=== PATIENT | male | born 1950 | race Caucasian/White ===

== ENCOUNTER 2021-04-27 08:19 | Outpatient (REF) | payer BC, SELFPAY ==
--- NOTE | ~2021-04-27 | US_ITS ---
EXAMINATION: US RETROPERITONEAL LIMITED (RENAL ONLY) CLINICAL INFORMATION: Calculus of kidney. COMPARISON: Renal ultrasound 09/24/2019 and 10/09/2018. X-ray abdomen KUB 08/13/2013 and 05/27/2008. CT abdomen and pelvis 10/01/2006. TECHNIQUE: Real-time imaging of the kidneys. FINDINGS: RIGHT KIDNEY: 13.4 x 6.2 x 6.0 cm (SAG x AP x TRV). The kidney is normal in size, contour, and echogenicity. Renal cortical thickness is normal. There is a 2.3 x 1.6 x 1.8 cm cyst in the upper pole. There is a 1.3 x 1.4 x 1.5 cm cyst in the upper pole with some internal echoes questionable for a complex cyst. No renal calculi or hydronephrosis. LEFT KIDNEY: 12.4 x 6.4 x 6.0 cm (SAG x AP x TRV). The kidney is normal in size, contour, and echogenicity. Renal cortical thickness is normal. There are 3 simple cysts, largest measuring 2 x 1.6 x 1.7 cm in the lower pole. No renal calculi or hydronephrosis. US/US renal BI IMPRESSION: Bilateral renal cysts. No stone seen.
[2021-04-27 10:22] LABS: PSA,Total (Free>4and<10) 3.33 ng/mL (0.00-4.00)
== END 2021-04-27 08:20 | disposition home or self-care (01) ==
LOC: HO.US 08:19
PROVIDERS: PCP Internal Medicine; Visit Provider Urology
DX: Z12.5 Encounter for screening for malignant neoplasm of prostate (principal); N20.0 Calculus of kidney; N40.1 Benign prostatic hyperplasia with lower urinary tract symptoms; N13.8 Other obstructive and reflux uropathy
CPT/HCPCS: 36415; 76775; 84153

== ENCOUNTER → 2021-05-18 13:53 | Outpatient (BNVA) | payer BC, SELFPAY | PROVIDERS: Visit Provider Urology ==

== ENCOUNTER 2021-10-28 10:14 | Outpatient (REF) | payer BC, SELFPAY ==
[2021-10-28 12:16] LABS: PSA,Total (Free>4and<10) 1.97 ng/mL (0.00-4.00)
== END 2021-10-28 10:15 | disposition home or self-care (01) ==
LOC: HO.HMGCLDS 10:14
PROVIDERS: Visit Provider Urology
DX: Z12.5 Encounter for screening for malignant neoplasm of prostate (principal); N40.1 Benign prostatic hyperplasia with lower urinary tract symptoms; N13.8 Other obstructive and reflux uropathy; R97.20 Elevated prostate specific antigen [PSA]
CPT/HCPCS: 36415; 84153

== ENCOUNTER → 2021-11-22 13:47 | Outpatient (BNVA) | payer BC, SELFPAY | PROVIDERS: Visit Provider Urology | DX: Z13.89 Encounter for screening for other disorder (principal) ==

== ENCOUNTER 2022-03-30 15:26 | Outpatient (REF) | payer BC, SELFPAY ==
--- NOTE | ~2022-03-30 | US_ITS ---
EXAMINATION: US RETROPERITONEAL LIMITED (RENAL ONLY) CLINICAL INFORMATION: Calculus of kidney. COMPARISON: US retroperitoneal limited (renal only) 04/27/2021 and 09/24/2019. XR abdomen KUB 08/13/2013. TECHNIQUE: Real-time imaging of the kidneys. FINDINGS: RIGHT KIDNEY: 13.2 x 5.9 x 7.5 cm (SAG x AP x TRV). The kidney is normal in size, contour, and echogenicity. Renal cortical thickness is normal. No renal calculi or hydronephrosis. There are 3 anechoic cysts. A midpole cyst measuring 1.8 x 2.1 x 1.9 cm and lower pole cyst measuring 2.6 x 3.6 x 2.3 cm and 1.2 x 1.2 x 0.81 cm. LEFT KIDNEY: 12.6 x 6.2 x 7.0 cm (SAG x AP x TRV). The kidney is normal in size, contour, and echogenicity. Renal cortical thickness is normal. No renal calculi or hydronephrosis. There are 3 anechoic cysts. Lower pole cyst measuring 1.1 x 1.2 x 1.1 cm and 2.6 x 2.3 x 1.7 cm. Midpole cyst measures 1.0 x 0.85 x 0.91 cm. US/US renal BI IMPRESSION: Bilateral renal cysts. No echogenic stones seen. Cyst were seen on previous study 04/27/2021
== END 2022-03-30 15:27 | disposition home or self-care (01) ==
LOC: HO.HMGCX 15:26
PROVIDERS: Visit Provider Urology
DX: N20.0 Calculus of kidney (principal)
CPT/HCPCS: 76775

== ENCOUNTER 2022-05-03 10:41 | Outpatient (REF) | payer BC, SELFPAY ==
[2022-05-03 14:48] LABS: Prostate Specific Antigen 1.51 ng/mL (<0.05-4.0)
== END 2022-05-03 10:42 | disposition home or self-care (01) ==
LOC: HO.HMGCLDS 10:41
PROVIDERS: Visit Provider Urology
DX: R97.20 Elevated prostate specific antigen [PSA] (principal); Z12.5 Encounter for screening for malignant neoplasm of prostate
CPT/HCPCS: 36415; 84153

== ENCOUNTER → 2022-05-25 08:32 | Outpatient (BNVA) | payer BC, SELFPAY | PROVIDERS: PCP Internal Medicine; Visit Provider Urology | DX: N40.1 Benign prostatic hyperplasia with lower urinary tract symptoms (principal); N13.8 Other obstructive and reflux uropathy; N20.0 Calculus of kidney | CPT/HCPCS: 51798 ==

== ENCOUNTER 2023-05-07 11:00 | Outpatient (REF) | payer BC, SELFPAY ==
[2023-05-07 13:55] LABS: Prostate Specific Antigen 1.76 ng/mL (<0.05-4.0)
== END 2023-05-07 11:01 | disposition home or self-care (01) ==
LOC: HO.HMGCLDS 11:00
PROVIDERS: PCP Internal Medicine; Visit Provider Urology
DX: N13.8 Other obstructive and reflux uropathy (principal); N40.1 Benign prostatic hyperplasia with lower urinary tract symptoms; Z12.5 Encounter for screening for malignant neoplasm of prostate
CPT/HCPCS: 36415; 84153

== ENCOUNTER 2023-05-11 08:04 | Outpatient (REF) | payer BC, SELFPAY ==
--- NOTE | ~2023-05-11 | US_ITS ---
EXAMINATION: US RETROPERITONEAL LIMITED (RENAL ONLY) CLINICAL INFORMATION: Calculus of kidney. COMPARISON: Renal ultrasound 03/30/2022 and 04/27/2021. TECHNIQUE: Real-time imaging of the kidneys. Limited visualization due to bowel gas. FINDINGS: RIGHT KIDNEY: 12.9 x 5.9 x 6.3 cm (SAG x AP x TRV). No hydronephrosis. No renal calculi. Limited visualization. Multiple renal cysts, largest upper pole 2.9 x 2.2 x 2.0 cm with benign features. There is no indication for follow up imaging. LEFT KIDNEY: 13.2 x 6.1 x 7.0 cm (SAG x AP x TRV). No hydronephrosis. No renal calculi. Limited visualization. Multiple renal cysts, largest lower pole 2.6 x 2.7 x 2.5 cm with benign features. There is no indication for follow up imaging. US/US renal BI IMPRESSION: No hydronephrosis. No renal calculi.
== END 2023-05-11 08:05 | disposition home or self-care (01) ==
LOC: HO.US 08:04
PROVIDERS: PCP Internal Medicine; Visit Provider Urology
DX: N20.0 Calculus of kidney (principal)
CPT/HCPCS: 76775

== ENCOUNTER 2023-05-24 08:35 | Outpatient (AMB) | payer BC, SELFPAY ==
--- NOTE | 2023-05-24 08:50 | A.OFFVIS_ITS ---
Intake Intake Visit Reasons: 1Y US/PSA(set) Intake Note: Patient is present for ultrasound/PSA/PVR Follow Up Current Medication: Tamsulosin Blood Thinners: none Post Void Residual: Training Program Developer Required: No Accompanied by: Self / Same As Patient Allergies tolmetin [From Tolectin] Allergy (Mild, Verified 05/24/23 08:53) ANAPHYLAXIS tolectin Allergy (Unknown, Uncoded 05/24/23 08:53) rash HPI HPI Comments History of Present Illness Details Chato is a pleasant male. He is a patient of Dr. Willoughby. He is seen for the following urologic conditions. - nephrolithiasis with renal cyst - PSA PSA remains low No stones Stable for past years May follow with Dr. Willoughby PSallyrSallyn. follow-up Nephrolithiasis Prior history Imaging showing renal cysts Imaging - 05/17 renal ultrasound bilateral renal cyst multiple in left and right up to 2 cm, no stones - 05/18 renal ultrasound bilateral renal cysts multiple unchanged, no stones - 05/19 renal ultrasound multiple renal c ysts with no stones PSA PSA 11/15 1.97, 05/18 1.5, 05/19 1.8 Repeat PSA in 6 months Family history prostate cancer father in later life PFSH Medical History Renal stones Hyperlipidemia BPH (benign prostatic hyperplasia) Surgical History History of surgery No history of previous surgery Family History Father Prostate cancer Social History Patient Tobacco Use Status: Never used Tobacco Review of Systems Const Denies chills and Denies fever(s) Card Reports no additional complaints and Denies syncope Resp Denies cough GI Denies abdominal pain and Denies heartburn Reports as per HPI and Denies change in libido Neuro Denies syncope Psych Denies change in libido Endo Denies change in libido Physical Exam Const General: cooperative, healthy appearing, comfortable and no acute distress Orientation/consciousness: patient oriented x3 HEENT Face and sinus: Yes normal facial exam Mouth: moist mucous membranes Neck Neck: Yes normal visual inspection, Yes full ROM and Yes trachea midline Chest Chest palpation & inspection: normal inspection of the chest Resp Effort & Inspection: normal respiratory effort, able to speak in complete sentences and no respiratory distress GI Inspection: Yes normal to inspection Back/Spine/Pelvis Cervical Spine: normal cervical lordosis Thoracic/Lumbar Spine: thoracic and lumbar spine normal to inspection Skin General skin exam: no rashes or lesions noted Neuro General: patient oriented x3, gait normal, tone normal and moves all extremities Extrem General: Yes normal to inspection and Yes capillary refill normal Results AMB Urinalysis, Automated UA Leukoctes 0 Cheri/uL Last Edit by [employer] on 05/24/23 09:01 UA Nitrite Last Edit by [employer] on 05/24/23 09:01 UA Urobilinogen 0.2 mg/dL Last Edit by [employer] on 05/24/23 09:01 UA Protein 0 mg/dL Last Edit by [employer] on 05/24/23 09:01 UA pH 6.0 Last Edit by [employer] on 05/24/23 09:01 UA Blood 0 Flex/uL Last Edit by [employer] on 05/24/23 09:01 UA Specific [place] 1.020 Last Edit by [employer] on 05/24/23 09:01 UA Ketone Negative Last Edit by [employer] on 05/24/23 09:01 UA Bilirubin 0 mg/dL Last Edit by [employer] on 05/24/23 09:01 UA Glucose 0 mg/dL Last Edit by [employer] on 05/24/23 09:01 Results Reviewed Results Reviewed: Laboratory Last Values Urine pH (Auto) 6.0 05/24/23 08:55 Specific [place] (Auto) 1.020 05/24/23 08:55 Urine Protein (Auto) 0 mg/dL 05/24/23 08:55 Glucose (UA)(Auto) 0 mg/dL 05/24/23 08:55 Urine Ketones (Auto) Negative 05/24/23 08:55 Urine Blood (Auto) 0 Flex/uL 05/24/23 08:55 Urine Bilirubin (Auto) 0 mg/dL 05/24/23 08:55 Urine Urobilinogen (Auto) 0.2 mg/dL 05/24/23 08:55 Leukocyte Esterase (Auto) 0 Cheri/uL 05/24/23 08:55 Assessment & Plan Assessment & Plan (1) BPH w urinary obs/LUTS: Code(s): N40.1 - Benign prostatic hyperplasia with lower urinary tract symptoms; N13.8 - Other obstructive and reflux uropathy (2) Nephrolithiasis: Code(s): N20.0 - Calculus of kidney Plan P.r.n. follow-up Orders: Orders AMB Urinalysis Automated Today Z13.9 - Encounter for screening, unspecified Patient Instructions: Imaging studies, laboratory and physical exam results were discussed and reviewed in detail. No major barriers to patient understanding were identified. An opportunity to ask questions regarding the treatment plan was provided. All questions were answered. The patient expressed understanding and agreement with the above treatment plan. The patient is aware they should contact our office by phone for worsening of their current condition or the appearance of new urologic symptoms. Compliance is encouraged with any medications and followup testing that is ordered. It is a privilege to participate in the urologic care of your patient. If you have any questions or concerns regarding treatment for the above conditions, or other urologic issues, please do not hesitate to contact me. The office telephone contact is [phone]. This note is constructed using voice recognition software. While every effort has been made to ensure accuracy automobile glass technician errors may have been included. Yours sincerely, Dr Foster Ruff MD, [facility] - Urology Providers of Expert, Compassionate Care for the Genitourinary System Coding Level of Care Code Est Pt Level 4 (66092) Diagnoses BPH w urinary obs/LUTS N40.1; N13.8 Nephrolithiasis N20.0
== END 2023-05-24 09:14 | disposition home or self-care (01) ==
PROVIDERS: PCP Internal Medicine; Visit Provider Urology
DX: N40.1 Benign prostatic hyperplasia with lower urinary tract symptoms (principal); N13.8 Other obstructive and reflux uropathy; N20.0 Calculus of kidney; Z13.9 Encounter for screening, unspecified
CPT/HCPCS: 99213

== ENCOUNTER → 2023-05-24 08:35 | Outpatient (BNVA) | payer BC, SELFPAY | PROVIDERS: Visit Provider Urology | DX: N40.1 Benign prostatic hyperplasia with lower urinary tract symptoms (principal); N13.8 Other obstructive and reflux uropathy; Z87.442 Personal history of urinary calculi | CPT/HCPCS: 81003 ==